=== PATIENT | male | born 1950 | race Caucasian/White ===

== ENCOUNTER 2017-06-26 05:26 | Inpatient (IN) ==
[~2017-06-26 05:26] MED LIST: DIAZEPAM 5 MG TABLET PO ONE; FAMOTIDINE 20 MG TABLET PO ONE
[2017-06-26] MEDS ORDERED: VANCOMYCIN INJ 1,000 MG in SODIUM CHLORIDE 0.9% 250 ML IV ONE (06:00)
[2017-06-26] MEDS ORDERED: ceFAZolin 1,000 MG in SYRINGE 1 EACH IV ONE (06:00)
[2017-06-26] MEDS ORDERED: ceFAZolin 1,000 MG VIAL ONE (06:04)
[2017-06-26] MEDS ORDERED: VANCOMYCIN 1,000 MG VIAL ONE (06:04)
[2017-06-26 06:30] LABS: Apearance,Urine CLEAR (Clear); Bilirubin,Urine Negative (Negative); Blood, Urine Negative (Negative); Glucose,Urine (UA) Negative (Negative); Ketones,Urine Negative (Negative); Nitrite,Urine Negative (Negative); Protein,Urine Negative; Urine Color Straw (Yellow); Urine Specific Gravity 1.005 (1.001-1.035); Urine Urobilinogen < 2.0 EU/DL (0.2-1.0); WBC,Urine <1 /HPF (0-6)
[2017-06-26] MEDS: LACTATED RINGERS 1,000 ML IV SCH ×2 (06:37→20:39)
[2017-06-26] MEDS ORDERED: TRANEXAMIC ACID 1,000 MG/10 ML VIAL IV ONE (06:39)
[2017-06-26] MEDS ORDERED: DIAZEPAM 5 MG TABLET ONE (06:40)
[2017-06-26] MEDS ORDERED: FAMOTIDINE 20 MG TABLET ONE (06:40)
[2017-06-26] MEDS ORDERED: TEMAZEPAM 7.5 MG CAPSULE PO PRN (07:09)
[2017-06-26] MEDS ORDERED: NALOXONE 0.4 MG/ML VIAL IV PRN (07:09)
[2017-06-26] MEDS ORDERED: PROMETHAZINE 25 MG/1 ML VIAL IM PRN (07:09)
[2017-06-26] MEDS ORDERED: ONDANSETRON 4 MG/2 ML VIAL IV PRN (07:09)
[2017-06-26] MEDS ORDERED: BISACODYL 10 MG SUPP RECTAL PRN (07:09)
[2017-06-26] MEDS ORDERED: MORPHINE 2 MG/1 ML SYRINGE IV PRN ×2 (07:09→10:20)
[2017-06-26] MEDS ORDERED: diphenhydrAMINE CAP 25 MG CAPSULE PO PRN (07:09)
[2017-06-26] MEDS ORDERED: LACTULOSE 20 GM/30 ML UDCUP PO PRN (07:09)
[2017-06-26] MEDS ORDERED: SUGAMMADEX 200 MG/2 ML VIAL IV ONE (08:49)
[2017-06-26 08:55] LABS: Apearance,Urine CLEAR (Clear); Bilirubin,Urine Negative (Negative); Blood, Urine Small mg/dL (Negative); Glucose,Urine (UA) Negative (Negative); Hyaline Casts,Urine 1 /LPF (0-3); Ketones,Urine Negative (Negative); Nitrite,Urine Negative (Negative); Protein,Urine Negative; RBC,Urine <1 /HPF (0-4); Urine Color Straw (Yellow); Urine Specific Gravity 1.004 (1.001-1.035); Urine Urobilinogen < 2.0 EU/DL (0.2-1.0); WBC,Urine <1 /HPF (0-6)
[2017-06-26] MEDS ORDERED: PROPOFOL 200 MG/20 ML VIAL IV ONE (08:57)
[2017-06-26] MEDS ORDERED: SEVOFLURANE 1 UNIT/15 MINUTE INH ONE (08:57)
[2017-06-26] MEDS ORDERED: ROCURONIUM 100 MG/10 ML VIAL IV ONE (08:58)
[2017-06-26] MEDS ORDERED: ONDANSETRON 4 MG/2 ML VIAL ONE (08:58)
[2017-06-26] MEDS ORDERED: LACTATED RINGERS 1,000 ML IV ONE ×2 (08:58→22:37)
[2017-06-26] MEDS ORDERED: PHENYLEPHRINE 1 MG/10 ML SYRINGE IV ONE (08:58)
[2017-06-26] MEDS ORDERED: fentaNYL 100 MCG/2 ML VIAL ONE (08:58)
[2017-06-26] MEDS ORDERED: MIDAZOLAM 2 MG/2 ML VIAL ONE (08:58)
[2017-06-26] MEDS ORDERED: GLYCOPYRROLATE 0.4 MG/2 ML VIAL ONE (08:58)
[2017-06-26] MEDS ORDERED: ACETAMINOPHEN 1,000 MG/100 ML VIAL IV ONE (08:58)
[2017-06-26] MEDS ORDERED: ERGOCALCIFEROL 50,000 UNIT CAPSULE PO SCH (09:00)
[2017-06-26] MEDS: MORPHINE PCA 30 MG/30 ML SYRINGE IV SCH (09:14)
[2017-06-26] MEDS: ZALEPLON 5 MG CAPSULE PO SCH (10:00)
[2017-06-26] MEDS: LISINOPRIL/HCTZ 20-12.5 MG TABLET PO SCH (10:00)
[2017-06-26] MEDS: OMEGA 3 ACID ETHYL ESTERS 1 GM CAPSULE PO SCH (10:00)
[2017-06-26] MEDS: LOVASTATIN 20 MG TABLET PO SCH (10:00)
[2017-06-26] MEDS: GABAPENTIN 600 MG TABLET PO SCH ×3 (10:00→20:35)
[2017-06-26] MEDS: MELOXICAM 7.5 MG TABLET PO SCH (10:00)
[2017-06-26] MEDS: DOCUSATE SODIUM 100 MG CAPSULE PO SCH ×2 (10:00→20:35)
[2017-06-26] MEDS: ceFAZolin 1,000 MG in SYRINGE 1 EACH IV SCH ×2 (12:06→18:18)
[2017-06-26] MEDS: FONDAPARINUX 2.5 MG/0.5 ML SYRINGE SUBCUT SCH (18:05)
[2017-06-26] MEDS: ACETAMINOPHEN 325 MG TABLET PO PRN (23:15)
[2017-06-27 05:47] LABS: Basophils % 0.4 % (0.0-0.8); Eosinophils # 0.3 10*3/uL (0.0-0.87); Eosinophils % 3.8 % (0.00-10.9); Hematocrit 26.6 VOL% (42.0-52.0); Hemoglobin 9.2 GM/DL (14.0-18.0); Immature Granulocytes % 0.3 %; Immature Granulocytes Absolute 0.02 #; Lymphocytes # 1.2 10*3/uL (1.4-4.0); Lymphocytes % 17.3 % (21.2-54.2); Mean Corpuscular HGB Conc 34.6 GM/DL (32-36); Mean Corpuscular Hemoglobin 31 PG (27-34); Mean Platelet Volume 10.4 FL (9.6-12.0); Monocytes # 0.7 10*3/uL (0.11-0.8); Monocytes % 9.6 % (1.7-12.7); Neutrophils # 4.9 10*3/uL (1.4-7.4); Neutrophils % 68.6 % (38.7-73.9); Platelet Count 150 T/CUMM (130-400); Red Blood Count 2.99 MC/CUMM (3.8-5.5); Red Cell Distribution Width 12.7 % (9.3-17.3); White Blood Count 7.1 T/CUMM (4-12)
[2017-06-27 06:25] LABS: Calcium 7.5 MG/DL (8.5-10.1); Osmolality,Calculated 276.8 MOS/KG (273-304); Potassium 3.6 MMOL/L (3.5-5.1)
[2017-06-27] MEDS: OMEGA 3 ACID ETHYL ESTERS 1 GM CAPSULE PO SCH (09:21)
[2017-06-27] MEDS: DOCUSATE SODIUM 100 MG CAPSULE PO SCH ×2 (09:21→21:31)
[2017-06-27] MEDS: LOVASTATIN 20 MG TABLET PO SCH (09:21)
[2017-06-27] MEDS: MELOXICAM 7.5 MG TABLET PO SCH (09:22)
[2017-06-27] MEDS: GABAPENTIN 600 MG TABLET PO SCH ×3 (09:23→21:30)
[2017-06-27] MEDS: LISINOPRIL/HCTZ 20-12.5 MG TABLET PO SCH (09:23)
[2017-06-27] MEDS: MORPHINE PCA 30 MG/30 ML SYRINGE IV SCH (10:14)
[2017-06-27] MEDS: ZALEPLON 5 MG CAPSULE PO SCH (10:46)
[2017-06-27] MEDS: LACTATED RINGERS 1,000 ML IV SCH (16:44)
[2017-06-27] MEDS: FONDAPARINUX 2.5 MG/0.5 ML SYRINGE SUBCUT SCH (18:11)
[2017-06-27] MEDS: ACETAMINOPHEN 325 MG TABLET PO PRN (21:30)
[2017-06-27] MEDS: MAGNESIUM HYDROXIDE SUSP 30 ML UDCUP PO PRN (21:35)
[2017-06-28] MEDS: MAGNESIUM HYDROXIDE SUSP 30 ML UDCUP PO PRN (05:06)
[2017-06-28] MEDS: LACTATED RINGERS 1,000 ML IV SCH (06:12)
[2017-06-28 06:13] LABS: Basophils % 0.3 % (0.0-0.8); Eosinophils # 0.4 10*3/uL (0.0-0.87); Eosinophils % 4.9 % (0.00-10.9); Hematocrit 27.4 VOL% (42.0-52.0); Hemoglobin 9.1 GM/DL (14.0-18.0); Immature Granulocytes % 0.9 %; Immature Granulocytes Absolute 0.08 #; Lymphocytes # 1.3 10*3/uL (1.4-4.0); Lymphocytes % 14.8 % (21.2-54.2); Mean Corpuscular HGB Conc 33.2 GM/DL (32-36); Mean Corpuscular Hemoglobin 30 PG (27-34); Mean Corpuscular Volume 90.7 FL (87-102); Mean Platelet Volume 10.6 FL (9.6-12.0); Monocytes # 0.8 10*3/uL (0.11-0.8); Monocytes % 8.8 % (1.7-12.7); Neutrophils # 6.1 10*3/uL (1.4-7.4); Neutrophils % 70.3 % (38.7-73.9); Platelet Count 145 T/CUMM (130-400); Red Blood Count 3.02 MC/CUMM (3.8-5.5); Red Cell Distribution Width 12.8 % (9.3-17.3); White Blood Count 8.6 T/CUMM (4-12)
[2017-06-28] MEDS: ACETAMINOPHEN 325 MG TABLET PO PRN (06:30)
[2017-06-28] MEDS: DOCUSATE SODIUM 100 MG CAPSULE PO SCH ×2 (09:58→21:05)
[2017-06-28] MEDS: LOVASTATIN 20 MG TABLET PO SCH (09:58)
[2017-06-28] MEDS: OMEGA 3 ACID ETHYL ESTERS 1 GM CAPSULE PO SCH (09:58)
[2017-06-28] MEDS: MELOXICAM 7.5 MG TABLET PO SCH (09:59)
[2017-06-28] MEDS: GABAPENTIN 600 MG TABLET PO SCH ×3 (09:59→21:05)
[2017-06-28] MEDS: LISINOPRIL/HCTZ 20-12.5 MG TABLET PO SCH (10:02)
[2017-06-28] MEDS: ZALEPLON 5 MG CAPSULE PO SCH (10:02)
[2017-06-28] MEDS: FONDAPARINUX 2.5 MG/0.5 ML SYRINGE SUBCUT SCH (19:02)
[2017-06-29] MEDS: DOCUSATE SODIUM 100 MG CAPSULE PO SCH (09:03)
[2017-06-29] MEDS: OMEGA 3 ACID ETHYL ESTERS 1 GM CAPSULE PO SCH (09:03)
[2017-06-29] MEDS: LOVASTATIN 20 MG TABLET PO SCH (09:03)
[2017-06-29] MEDS: GABAPENTIN 600 MG TABLET PO SCH (09:04)
[2017-06-29] MEDS: MELOXICAM 7.5 MG TABLET PO SCH (09:04)
[2017-06-29] MEDS: LISINOPRIL/HCTZ 20-12.5 MG TABLET PO SCH (09:07)
[2017-06-29] MEDS: ZALEPLON 5 MG CAPSULE PO SCH (09:07)
[2017-06-29 12:13] VITALS: BP 98/55
[2017-06-29] MEDS: FONDAPARINUX 2.5 MG/0.5 ML SYRINGE SUBCUT SCH (13:54)
== END 2017-06-29 14:45 | disposition home health service (06) | DRG 470 ==
LOC: N.OR 05:26 → N.SDSINP 05:28 → N.3E 07:09 → EDSTATUS 07:30 → N.3E 09:55
PROVIDERS: ADMIT Orthopaedic Surgery; ATTEND Orthopaedic Surgery